=== PATIENT | female | born 1965 | race Caucasian/White ===

== ENCOUNTER 2017-06-03 23:08 | Emergency (ER) | payer BC, OTHER ==
[~2017-06-03] VITALS: Ht 160 cm; Wt 77.1 kg
--- NOTE | ~2017-06-03 | EKG ---
[place], [place] ELECTROCARDIOGRAM REPORT NAME: RONAL GENTILE UNIT #: [id number] ROOM: DOCTOR: MALKA COLORADO MD BIRTHDATE: [birth year] DOS: 06/04/2017 TIME: 0258 hours. Normal sinus rhythm at 74 beats per minute. The tracing is normal. No previous tracing is available for comparison. MALKA COLORADO MD CM:EKGRPT:ELECTROCARDIOGRAM REPORT [id number] MALKA COLORADO MD
--- NOTE | ~2017-06-03 | EKG ---
[place], [place] ELECTROCARDIOGRAM REPORT NAME: RONAL GENTILE UNIT #: [id number] ROOM: DOCTOR: MALKA COLORADO MD BIRTHDATE: [birth year] DOS: 06/03/2017 TIME: 2342 hours. Normal sinus rhythm at 85 beats per minute. The tracing is normal. No previous tracing is available in comparison. MALKA COLORADO MD CM:EKGRPT:ELECTROCARDIOGRAM REPORT 1710 [id number] MALKA COLORADO MD
[~2017-06-03 23:08] MED LIST: ANAPROX DS550 MG PO; CLEOCIN HCL150 MG PO; CYCLOBENZAPRINE10 MG PO; DICYCLOMINE20 MG PO; EES400 MG PO; FLEXERIL10 MG PO; HYDROCODONE BIT1 T11 PO; IBU-8800 MG PO; NAPROSYN500 MG PO; NKHM; NORCO 5-325 TA1 EACH PO; TRAMADOL HCL50 MG PO; ULTRAM50 MG PO; VICODIN 5/500 505 MG PO; VICODIN ES 7501 TAB PO; ZOFRAN ODT4 MG PO
[2017-06-03 23:46] LABS: BASO % 0.3 % (0.0-1.0); EOS # 0.4 10*3/uL (0.0-0.4); EOS % 4.3 % (1.0-4.0); HEMOGLOBIN 14.1 g/dl (12.0-16.0); LYMPH # 4.4 10*3/uL (1.3-4.4); LYMPH % 48.7 % (27.0-41.0); MEAN CELL VOLUME 89.9 fl (81.0-99.0); MEAN CORPUSCULAR HGB 30.9 pg (27.0-31.0); MEAN CORPUSCULAR HGB CONC 34.4 g/dl (33.0-37.0); MEAN PLATELET VOLUME 10.6 fl (9.6-12.3); MONO # 0.6 10*3/uL (0.1-1.0); MONO % 6.2 % (3.0-9.0); NEUT # 3.6 10*3/uL (2.3-7.9); NEUT % 40.3 % (47.0-73.0); PLATELET COUNT AUTOMATED 267 10*3/uL (130-400); RED BLOOD COUNT 4.56 10*6/uL (4.10-5.10); RED CELL DISTRI WIDTH 12.8 % (0-14.5)
[2017-06-03 23:58] LABS: ACT PARTIAL THROMBO TIME 25.1 SECONDS (20.8-31.5)
[2017-06-04 00:02] LABS: ALBUMIN 3.6 gm/dl (3.1-4.5); ALKALINE PHOSPHATASE 56 U/L (45-117); BUN 14 mg/dl (7-24); CHLORIDE 108 mmol/L (98-107); CREATININE 0.76 mg/dL (0.55-1.02); POTASSIUM 3.6 mmol/L (3.5-5.1); SGOT/AST 15 IU/L (3-35); SGPT/ALT 18 U/L (12-78); SODIUM 142 mmol/L (136-145)
[2017-06-04 00:03] LABS: TROPONIN I < 0.015 ng/ml (<0.045)
[2017-06-04 01:40] VITALS: BP 111/68
[2017-06-04 02:21] LABS: BILIRUBIN NEGATIVE (NEGATIVE); BLOOD NEGATIVE (NEGATIVE); CLARITY CLEAR (CLEAR); COLOR YELLOW (YELLOW); GLUCOSE NEGATIVE (NEGATIVE); KETONE NEGATIVE (NEGATIVE); LEUKO ESTERASE NEGATIVE (NEGATIVE); NITRITE NEGATIVE (NEGATIVE); PH 5.5 (5.0-9.0); SPECIFIC GRAVITY 1.025 (1.005-1.030); UROBILINOGEN 0.2 E.U./dl (0.2-1.0)
[2017-06-04 02:59] LABS: RBC 0-2 rbc/hpf (0-2); WBC 0-2 wbc/hpf (0-5)
[2017-06-04] MEDS ORDERED: PROTONIX40 MG PO (03:45)
== END 2017-06-04 04:10 | disposition home or self-care (01) ==
LOC: ED 23:08
PROVIDERS: Emergency Medicine Emergency Medical Services
DX: K20.8 Other esophagitis (principal); F17.200 Nicotine dependence, unspecified, uncomplicated; Z79.899 Other long term (current) drug therapy

== ENCOUNTER 2019-12-10 08:13 | Emergency (ER) | payer BC ==
[~2019-12-10] VITALS: Ht 157.4 cm; Wt 77.1 kg
[~2019-12-10 08:13] MED LIST changes: +PROTONIX40 MG PO
[2019-12-10 08:27] VITALS: BP 132/74
[2019-12-10] MEDS ORDERED: PREDNISONE50 MG PO (13:12)
== END 2019-12-10 13:19 | disposition home or self-care (01) ==
LOC: ED 08:13
DX: M53.3 Sacrococcygeal disorders, not elsewhere classified (principal); M79.651 Pain in right thigh; Z79.899 Other long term (current) drug therapy

== ENCOUNTER → 2023-12-13 | Outpatient (CLI) | payer BC ==
[~2023-12-13] MED LIST changes: +PREDNISONE50 MG PO
== END | disposition home or self-care (01) ==
LOC: MAMMO 02:22
PROVIDERS: ATTEND Internal Medicine
DX: Z12.31 Encounter for screening mammogram for malignant neoplasm of breast (principal)

== ENCOUNTER → 2023-12-27 | Outpatient (CLI) | payer BC | END | disposition home or self-care (01) | LOC: US 12-21 13:30 | PROVIDERS: ATTEND Internal Medicine | DX: R92.332 Mammographic heterogeneous density, left breast (principal); R92.8 Other abnormal and inconclusive findings on diagnostic imaging of breast; N64.89 Other specified disorders of breast ==

== ENCOUNTER → 2024-06-11 | Day surgery (SDC) | payer BC ==
[~2024-06-11] VITALS: Ht 157.4 cm; Wt 70.3 kg
[~2024-06-11] MED LIST changes: +BUPIVACAINE 0.5% 10 ML VIAL ONE; +CELECOXIB200 MG PO; +Dexamethasone Sodium Phospha 4 MG/ML VIAL IV ONE; +Lactated Ringer's Solution 1,000 ML IV ONE; +Lactated Ringer's Solution 1,000 ML IV SCH; +Lidocaine Hydrochloride 30 ML VIAL ONE; +Lidocaine Hydrochloride 5 ML VIAL IV ONE; +Midazolam Hydrochloride 2 MG/2 ML VIAL IV ONE; +Ondansetron Hydrochloride 4 MG/2 ML VIAL IV ONE; +PROPOFOL 200 MG/20 ML VIAL IV ONE; +VOLTAREN ARTHRI20 GM T; +ceFAZolin sodium/sodium chlor 10 ML IV ONE
[2024-06-11 07:09] LABS: BUN 15 mg/dl (9-23); CHLORIDE 105 mmol/L (98-107); POTASSIUM 3.9 mmol/L (3.4-5.1)
[2024-06-11 07:16] VITALS: BP 131/68
[2024-06-11 07:55] VITALS: BP 100/54
[2024-06-11 08:06] VITALS: BP 115/72
[2024-06-11 08:25] VITALS: BP 116/77
== END | disposition home or self-care (01) ==
LOC: SDC 06-07 12:30
PROVIDERS: ATTEND Orthopaedic Surgery
DX: G56.03 Carpal tunnel syndrome, bilateral upper limbs (principal); K21.9 Gastro-esophageal reflux disease without esophagitis; M19.90 Unspecified osteoarthritis, unspecified site; F17.210 Nicotine dependence, cigarettes, uncomplicated; Z79.891 Long term (current) use of opiate analgesic; Z79.899 Other long term (current) drug therapy; Z83.3 Family history of diabetes mellitus